=== PATIENT | male | born 1965 | race Caucasian/White ===

== ENCOUNTER → 2019-05-17 | Outpatient (CLI) | payer OTHER ==
--- NOTE | 2019-05-17 16:02 | RAD ---
CT CHEST WO CONTRAST Indication: Atypical chest pain Exposure: One or more of the following individualized dose reduction techniques were utilized for this examination: 1. Automated exposure control 2. Adjustment of the mA and/or kV according to patient size 3. Use of iterative reconstruction technique. Technique: Standard imaging without intravenous contrast. Comparison: None FINDINGS: Irregularity of the ascending aorta is likely due to pulsatility artifact. Minimal aortic calcification. No evidence of aortic aneurysm. Vascular exam otherwise limited without contrast. The thyroid appears unremarkable. No evidence of pathologic lymph node enlargement. No evidence of pericardial effusion. No evidence of pleural effusion. No evidence of pneumothorax. No consolidating infiltrate. Small groundglass nodule in the left upper lobe, measuring 7 mm diameter, series 2, image 16. No other pulmonary mass is identified. The trachea and mainstem bronchi are patent. Vertebral body height and alignment are intact, with mild degenerative spurring. No acute bone abnormality is identified. Scans through the upper abdomen are limited by technique. No definite acute findings are seen. IMPRESSION: 1. Small groundglass nodule in the left upper lobe, measuring 7 mm. As per revised Fleischner guidelines, recommend follow-up CT chest in 6 months to determine if this is a persistent finding. 2. No acute findings are otherwise identified. Electronically signed by: Jair Rich MD (05/17/2019 3:59 PM) [id number]
== END | disposition home or self-care (01) ==
LOC: CT 11:21
PROVIDERS: ATTEND Internal Medicine Gastroenterology
DX: R91.1 Solitary pulmonary nodule (principal); I70.0 Atherosclerosis of aorta
CPT/HCPCS: 71250